=== PATIENT | female | born 1980 | race Caucasian/White ===

== ENCOUNTER → 2016-09-27 | Outpatient (CLI) | payer BC ==
[2016-09-27 10:24] LABS: COMPLETE YES; IG% 0.2 %; LYMPH % 28.7 %; LYMPH ABS # 1.41 K/uL (1.2-3.4); MEAN CELL VOLUME 81.6 fL (80-100); MEAN CORPUSCULAR HEMOGLOBIN 28.8 pg (25-34); MEAN CORPUSCULAR HGB CONC 35.3 g/dl (32-36); MEAN PLATELET VOLUME 9.6 fL (7.4-10.4); MONO % 6.5 %; NEUT % 64.6 %; PLATELET COUNT 227 K/uL (130-400); RED BLOOD COUNT 4.41 M/uL (4.2-5.4); WHITE BLOOD COUNT 4.92 K/uL (4.8-10.8)
[2016-09-27 12:00] LABS: ALT/SGPT 19 U/L (12-78); AST/SGOT 9 U/L (15-37); BLOOD UREA NITROGEN 12 mg/dl (7-18); BUN/CREATININE RATIO 19.6 (10-20); CALCIUM 8.7 mg/dl (8.5-10.1); CARBON DIOXIDE 24 mmol/L (21-32); CHLORIDE 105 mmol/L (98-107); CREATININE 0.59 mg/dl (0.60-1.20); GLUCOSE 77 mg/dl (70-99); MAGNESIUM 2.1 mg/dl (1.8-2.4); SODIUM 139 mmol/L (136-145)
[2016-09-27 12:11] LABS: ALKALINE PHOSPHATASE 152 U/L (45-117)
[2016-09-27 13:30] LABS: LYME DISEASE AB IGG NEG (NEG); LYME DISEASE AB IGM NEG (NEG)
== END | disposition home or self-care (01) ==
LOC: C.LAB1850 09:27
PROVIDERS: ATTEND Psychiatry & Neurology Neurology
DX: R25.3 Fasciculation (principal)

== ENCOUNTER → 2016-10-24 | Outpatient (CLI) | payer BC ==
[~2016-10-24] VITALS: Ht 160 cm; Wt 109.1 kg
[2016-10-24 08:49] VITALS: BP 131/93; PULSE 97; Ht 160 cm; Wt 109.1 kg
== END | disposition home or self-care (01) ==
LOC: C.NEUR 08:32
PROVIDERS: ATTEND Internal Medicine Pulmonary Disease
DX: G47.33 Obstructive sleep apnea (adult) (pediatric) (principal); G47.19 Other hypersomnia; G47.50 Parasomnia, unspecified; G47.61 Periodic limb movement disorder

== ENCOUNTER → 2016-12-08 | Outpatient (CLI) | payer BC ==
--- NOTE | 2016-12-09 06:30 | PAP/PSG TECHNICIAN REPORT ---
[facility] Jig Grinder Polysomnogram Report Study name: None Report date: 12/09/2016 Study date: 12/08/2016 Referring Physician: SKYLER CRUZ DO, DO Name: NNAMDI SIU Interpreting Physician: Skyler Cruz D.O. Date of : 1980 Jig Grinder: Mony Bell RPS. Sex: Female Age: 36 Study Type: PSG Weight: 240.52 lbs 16 in Height: 36 years, Height 5' 3" Neck Circum: BMI: 42.6 Medications: LEVOTHYROXINE 100 MCG, ANAFRANIL 50 MG, LAMOTRIGINE 100 MG Patient History 36 yr-old female here for a baseline study. She has a history of RLS, daytime sleepiness, and movements during sleep. She has also been tested for a possible seizure disorder. Her Patterson scale is 10. The test was started on room air. ETCO2 testing was not utilized during this study. Due to her history of possible seizures, the test was run with additional seizure montage. Room 3 Parameters Monitored NPSG: E1-M2, E2-M1, Fp1-M2, Fp2-M1, F3-M2, F4-M2, F4-M1, C3-M2, C4-M2, C4-M1, O1-M2, O2-M2, O2-M1, T3-M2, T4-M1, P3-M2, P4-M1, CHIN1, CHIN2, HR, EKG, Legs, PFLOW, SNOR, FLOW, CFLOW, Tidal Volume, THOR, ABDO, SpO2, PLTH, CPRESS, ETCO2 Wave, ETCO2, pH Sleep Architecture Sleep Stages Time at Lights Off 10:06:26 PM STAGES Time (min.) TST (%) Time at Lights On 5:29:56 AM Wake 84.5 -- Total Recording Time (TRT) 443.50 min. N1 48.0 13 Total Sleep Period (TSP) 426.5 min. N2 225.0 63 Total Sleep Time (TST) 359.0min. N3 19.0 5 Awake Time 84.5 min. REM 67.0 19 Wake after Sleep Onset 69.0 min. Sleep Efficiency (SE) 81 % Sleep Onset Latency (BURTON) 15.5 min. Number of Stage 1 Shifts None Awakenings 29 Stage Changes 137 Number of REM periods 11 REM 67.0 19 REM Latency 90.0 min. NREM 292.0 81 Body Position Analysis Supine Right Left Side Prone Vertical Total Sleep Time (min.) 425.5 0.0 0.0 0.00 0.0 3.8 Total Sleep Time (%) 100% 0% 0% 0 0% N/A% Total Sleep Time REM (min.) 67.0 0.0 0.0 None 0.0 0.0 Total Sleep Time NREM (min.) 292.0 0.0 0.0 None 0.0 0.0 Intermittent Wake (min.) 66.5 14.1 0.0 None 0.0 3.8 Total Sleep Period (%) 97% None None None None None Arousals Myoclonus (PLM) * Events Count Index Events Count Index Spontaneous 61 10 Events Awake (PLMW) 93 66.0 Respiratory 1 0.2 Events Asleep w/ Arousal (PLMA) 24 4.0 PLM 22 4 Events Asleep w/o Arousal (PLMS) 597 99.8 Snoring 6 1 Total Asleep 621 103.8 Total 90 15 Total 714 97 Respiratory Analysis * CA OA MA CH H RERA Total Count 0 0 0 0 4 0 4 Index 0.0 0.0 0.0 0 0.7 0 0.7 Mean Duration 0.0 0.0 0.0 0.00 16.9 0.0 16.9 Longest Duration 0.0 0.0 0.0 0.00 0.0 0.0 22.7 Respiratory Event Summary Total Supine ~Supine Right Left Prone REM NREM Apneas Count 0 0 N/A N/A N/A N/A 0 0 Index 0.0 0 N/A N/A N/A N/A 0 0 Hypopneas (4% Desat) Count 4 4 N/A N/A N/A N/A 4 0 Index 0.7 0.7 N/A N/A N/A N/A 3.6 0.0 Apneas & All Hypopneas Count 4 4 N/A N/A N/A N/A 4 0 Index 0.7 1 N/A N/A N/A N/A 3.6 0.0 Respiratory Events (Genetic Counselor+All Hyp+RERA) Count 4 4 N/A N/A N/A N/A 4 0 Index 0.7 1 N/A N/A N/A N/A 3.6 0.0 Respiratory Related Arousal Count 1 4 N/A N/A N/A N/A 1 0 Index 0.2 0 N/A N/A N/A N/A 1 0 Snoring Analysis Supine Right Left Prone REM NREM Total Snore duration 9.6 min Snores count 605 N/A N/A N/A 41 564 605 Snore mean duration 1.0 Sec Snores index 101 N/A N/A N/A 36.7 115.9 101.1 TST with snoring (%) 2.7% Desaturation Event Summary: Minimum %SpO2 Event Count Mean/Min/Max Duration(sec.) Desaturation Index % Time In Bed > 90 15 25.3 / 6.8 / 54.0 2.1 99.8 86 - 90 1 7.5 / 7.5 / 7.5 85.7 0.2 81 - 85 0 N/A 0.0 0.0 76 - 80 0 N/A 0.0 0.0 71 - 75 0 N/A 0.0 0.0 66 - 70 0 N/A 0.0 0.0 61 - 65 0 N/A 0.0 0.0 56 - 60 0 N/A 0.0 0.0 51 - 55 0 N/A 0.0 0.0 < 50 0 N/A 0.0 0.0 Total REM NREM Awake <50% 0.0 min. 0.0 min. 0.0 min. 0.0 min. 51 - 60% 0.0 min. 0.0 min. 0.0 min. 0.0 min. 61 - 70% 0.0 min. 0.0 min. 0.0 min. 0.0 min. 71 - 80% 0.0 min. 0.0 min. 0.0 min. 0.0 min. 81 - 90% 0.8 min. 0.3 min. 0.0 min. 0.5 min. 91 - 100% 437.7 min. 66.7 min. 292.0 min. 79.1 min. Average 95 94 95 97 Minimum SpO2 85 86 91 85 Desaturation Event Index 2.0 4.5 1.2 3.6 # Desat. Events below 89% 2 1 N/A 1 Time(%) with Saturation below 89% 0.1 0.0 0.0 0.1 Time(min.) with Saturation below 89% 0.3 0.1 0.0 0.2 Time (mins) REM (mins) NREM (mins) % of TST SpO2 Below 90% 1 1 NN/A 0.0 SpO2 Below 88% 0 0 0 0 Heart Rate Analysis Min (bpm) Max (bpm) Average (bpm) Awake 67 127 81 NREM 65 105 76 REM 57 100 76 Overall 57 105 76 Supplemental O2 Values Minimum O2 level: None Value Start Time End Time Jig Grinder Comments Ms. Siu slept in the right and supine positions. No cardiac arrhythmias were noted. PLMs were noted throughout the study. There were a lot of leg movements in REM as well. No bruxism noted. Snoring was noted and scored as a 2 on a scale of 1 through 5. (0=no snoring, 5=snoring loud enough to be heard through a closed door or down the mata way). She awoke to use the restroom one time during the night. Ms. Siu stated that she slept poorly. The final report will be interpreted and signed by a sleep physician. The completed physician report will then be placed in the patient medical record. Therapy (cm H2O) 0 TIB (min.) 443.5 TST (min.) 359.0 Sleep Onset (min.) 15.5 REM Onset From Sleep (min.) 90.0 Sleep Efficiency % 81 Wakefulness (%) 19 Wakefulness (min.) 84.5 NREM 1 (%) 13 NREM 1 (min.) 48.0 NREM 2 (%) 63 NREM 2 (min.) 225.0 NREM 3 (%) 5 NREM 3 (min.) 19.0 REM (%) 19 REM (min.) 67.0 # Arousals 90 Arousal Index 15 # Snore 605 Snore Index 101.1 AHI 0.7 AHI Supine 1 AHI Non-Supine N/A NREM AHI 0.0 REM AHI 3.6 RDI 0.7 # Obstructive Apnea 0 # Central Apnea 0 # Mixed Apnea 0 # Hypopneas 4 RERAs 0 Total Respiratory Events 4 Time Below SpO2 89% (min.) 0.1 Mean NREM SpO2 (%) 95 Mean REM SpO2 (%) 94 Mean Sleep SpO2 (%) 95 Min NREM SpO2 (%) 91 Min REM SpO2 (%) 86 Position Supine (min.) 425.5 Position Non-supine (min.) 0.0 LM Index Sleep 103.8 LM Index NREM 95.8 LM Index REM 138.8 Mean Heart Rate (bpm) 76 Min Heart Rate (bpm) 57
--- NOTE | 2016-12-14 08:27 | POLYSOMNOGRAPH REPORT ---
PRIMARY CARE PHYSICIAN: Dr. Quoc Forrester. REFERRING PROVIDER: Dixie Love PA-C. CLINICAL DATA: The patient is a 36-year-old female with a BMI of 42.6. She is referred by Dixie Love PA-C. She has an [place] score of 10 out of a possible 24. Her symptoms include snoring, possible observed apnea, twitching and movements during sleep, possible acting out dreams, and excessive daytime somnolence. SLEEP ARCHITECTURE: The total sleep period was 426.5 minutes. Total sleep time was 359.0 minutes. Sleep efficiency is 81%. The sleep onset latency was normal at 15.5 minutes. The REM latency was normal at 90 minutes. Wake after sleep onset was 69 minutes. There were 29 awakenings. Sleep consisted of stage N1 at 13%, stage N2 at 63%, stage N3 at 5%, and stage REM 19%. AROUSAL DATA: The patient had a total of 90 arousals including 61 spontaneous arousals, 1 respiratory arousal, 22 periodic limb movement arousals, and 6 snoring arousals. The arousal index was 15. PLM DATA: The patient had a total of 621 periodic limb movements of sleep for an index severely elevated at 103.8. There were 24 limb movements with arousals for a PLM arousal index of 4.0. EKG: The underlying cardiac rhythm was normal sinus. The average heart rate was 76 beats per minute with a minimum of 57 and a maximum of 105. RESPIRATORY DATA: The patient had a total of only 4 respiratory events, all hypopneas. The apnea-hypopnea index was normal at 0.7 events per hour. This would indicate no significant sleep apnea. OXIMETRY DATA: The patient had an average oxygen saturation of 95%. The minimum was 85%. There was just a transient desaturation with time less than 89% only 0.3 minutes. PHOTOGRAPHY INTERN'S COMMENTS: The patient slept in the right and supine positions. No arrhythmias were noted. PLMs were noted throughout the night. There were a lot of leg movements in REM as well. Snoring was noted and scored as a 2 on a scale of 1 through 5. After the study, the patient indicated she had slept poorly. IMPRESSIONS: 1. Periodic limb movement disorder. 2. 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 COMMENTS: The patient has very frequent limb movements as noted. It is unknown if these could be related to any of her medications, particularly Anafranil. She did not have any sleep apnea. Oxygenation was normal. Her sleep was fairly well consolidated except for the limb movements. She did have limb movements in REM much more than normal. Thus, the possibility of REM behavior disorder exists particularly with a history that she may be acting out her dreams. RECOMMENDATIONS: 1. Consideration is given to a trial of medication for the limb movements such as pramipexole or ropinirole. 2. If either of these medications were ineffective in improving her symptoms, consideration might then be given to a trial of Clonazepam. 3. Laboratory studies should be done to rule out such disorders as iron deficiency. This might include not just serum iron, but also ferritin. 4. Consideration could be given to a trial of vitamin E. MTDD
== END | disposition home or self-care (01) ==
LOC: C.NEUR 21:00
PROVIDERS: ATTEND Internal Medicine Pulmonary Disease
DX: G47.33 Obstructive sleep apnea (adult) (pediatric) (principal); G47.19 Other hypersomnia; G47.50 Parasomnia, unspecified; G47.61 Periodic limb movement disorder

== ENCOUNTER → 2016-12-26 | Outpatient (CLI) | payer BC ==
[~2016-12-26] VITALS: Ht 251.5 cm; Wt 106.5 kg
[2016-12-26 08:56] VITALS: BP 129/90; PULSE 103; Ht 251.5 cm; Wt 106.5 kg
== END ==
LOC: C.NEUR 08:41
PROVIDERS: ATTEND Internal Medicine Pulmonary Disease
DX: G47.61 Periodic limb movement disorder (principal); G47.52 REM sleep behavior disorder

== ENCOUNTER → 2016-12-26 | Outpatient (CLI) | payer BC ==
[2016-12-26 15:03] LABS: FERRITIN 17.6 ng/ml (8.0-388.0)
== END | disposition home or self-care (01) ==
LOC: C.LABBC 09:59
PROVIDERS: ATTEND Internal Medicine Pulmonary Disease
DX: G47.61 Periodic limb movement disorder (principal)

== ENCOUNTER → 2017-11-07 | Outpatient (CLI) | payer BC ==
[~2017-11-07] MED LIST: GADAVIST IV PRN
--- NOTE | 2017-11-07 09:55 | DIAGNOSTIC IMAGING REPORT ---
BRAIN COMBO FOR SEIZURE CLINICAL HISTORY: R25.1 [id number] Visual hallucinationsworsenig COMPARISON STUDY: 06/29/2016 TECHNIQUE: Utilizing a 1.5 Rochelle magnet and dedicated coil, multiplanar, multiecho imaging of the brain was performed pre and postcontrast administration. IV administration of 10 mL of Gadavist contrast was uneventful. Thin cut coronal T2 imaging was performed according to seizure protocol. FINDINGS: Low-lying cerebellar tonsils. This is unchanged in the prior study. Diffusion images are negative for an acute ischemic insult. Signal characteristics the cerebellar as well as cerebral hemispheres are unremarkable. Postcontrast images are considered negative for an enhancing lesion. IMPRESSION: Low-lying cerebellar tonsils. Otherwise negative study. No change from the prior exam. The above report was generated using voice recognition software. It may contain grammatical, syntax or spelling errors. Electronically signed by: Ozzy Osei M.D. 11/07/2017 9:54 AM Dictated Date/Time: 11/07/2017 9:47 AM
== END | disposition home or self-care (01) ==
LOC: C.MRI 09:02
PROVIDERS: ATTEND Physician Assistant
DX: G47.50 Parasomnia, unspecified (principal); R44.1 Visual hallucinations; R25.1 Tremor, unspecified; G93.5 Compression of brain